=== PATIENT | male | born 1950 | race Caucasian/White ===

== ENCOUNTER 2019-08-27 21:32 | Outpatient (REF) | payer BC, SELFPAY ==
[2019-08-27 19:44] LABS: BUN 29 mg/dL (7-18); CREATININE 1.02 mg/dL (0.70-1.30); Calcium 9.4 mg/dL (8.5-10.1); Chloride 102 mmol/L (98-107); Glucose 87 mg/dL (70-100); Sodium 139 mmol/L (136-145)
== END 2019-08-27 21:52 ==
LOC: NCHCN 21:32
PROVIDERS: PCP Internal Medicine; Visit Provider Internal Medicine
DX: N20.9 Urinary calculus, unspecified (principal)
CPT/HCPCS: 80048

== ENCOUNTER 2020-05-18 18:22 | Outpatient (REF) | payer BC, SELFPAY ==
[2020-05-18 22:25] LABS: ALT 16 U/L (16-63); AST 13 U/L (15-37); Albumin 4.3 g/dL (3.4-5.0); Alkaline Phosphatase 53 U/L (46-116); Anion Gap 9.2 mmol/L (3-11); BUN 26 mg/dL (7-18); Bilirubin, Total 0.5 mg/dL (0.2-1.0); CO2 28.8 mmol/L (21.0-32.0); CREATININE 1.18 mg/dL (0.70-1.30); Calculated LDL 134 mg/dL (<100); Chloride 98 mmol/L (98-107); Cholesterol 196 mg/dL (<200); Glucose 111 mg/dL (74-106); HDL Cholesterol 40 mg/dL (40-60); Potassium 3.6 mmol/L (3.5-5.1); Sodium 136 mmol/L (136-145); Total Protein 8.4 g/dL (6.4-8.2); Triglyceride 111 mg/dL (<150)
== END 2020-05-18 18:42 ==
LOC: NCHCN 18:22
PROVIDERS: PCP Internal Medicine; Visit Provider Internal Medicine
DX: I10 Essential (primary) hypertension (principal); E78.5 Hyperlipidemia, unspecified
CPT/HCPCS: 80053; 80061

== ENCOUNTER 2020-09-23 20:01 | Outpatient (REF) | payer BC, SELFPAY ==
[2020-09-23 21:29] LABS: Abs Immature Grans 0.02 10^3/uL (0.0-0.06); Absolute Basophil Count 0.08 10^3/uL (0.0-0.2); Absolute Eosinophil Count 0.98 10^3/uL (0.0-0.7); Absolute Lymphocyte Count 1.94 10^3/uL (1.2-3.4); Absolute Neutrophil Count 4.37 10^3/uL (1.2-6.7); Eosinophils % 12.1; HCT 44.9 % (40.0-50.0); HGB 15.2 g/dL (13.5-17.5); Immature Grans % 0.2; MCH 31.4 pg (27.0-33.0); MCHC 33.9 % (32.0-36.0); MCV 92.8 fL (80-95); MPV 11.4 fL (8.0-11.0); Monocytes % 8.7; Nucleated RBC 0 %; Platelet Count 215 10^3/uL (130-400); RBC 4.84 10^6/uL (4.36-5.78); RDW 12.6 % (11.8-14.1); RDW-SD 43.2 fL; WBC 8.09 10^3/uL (4.4-10.8)
[2020-09-23 21:34] LABS: INR 1.1 (0.9-1.1); Prothrombin Time 10.9 sec (9.3-11.0)
[2020-09-23 21:51] LABS: ALT 22 U/L (16-63); AST 14 U/L (15-37); Albumin 4.2 g/dL (3.4-5.0); Alkaline Phosphatase 57 U/L (46-116); Anion Gap 5.9 mmol/L (3-11); BUN 31 mg/dL (7-18); Bilirubin, Total 0.6 mg/dL (0.2-1.0); CO2 30.1 mmol/L (21.0-32.0); Calcium 9.3 mg/dL (8.5-10.1); Chloride 101 mmol/L (98-107); Glucose 87 mg/dL (74-106); Potassium 3.8 mmol/L (3.5-5.1); Sodium 137 mmol/L (136-145); Total Protein 8.2 g/dL (6.4-8.2)
== END 2020-09-23 20:21 ==
LOC: LBN 20:01
PROVIDERS: PCP Internal Medicine; Visit Provider Surgery Vascular Surgery
DX: R79.89 Other specified abnormal findings of blood chemistry (principal); I83.812 Varicose veins of left lower extremity with pain
CPT/HCPCS: 80053; 85025; 85610; 85730

== ENCOUNTER 2021-08-31 13:55 | Outpatient (REF) | payer MEDICARE, SELFPAY ==
[2021-09-01 06:44] LABS: ALT 19 U/L (16-63); AST 12 U/L (15-37); Albumin 4.3 g/dL (3.4-5.0); Alkaline Phosphatase 59 U/L (46-116); Anion Gap 8.6 mmol/L (3-11); BUN 24 mg/dL (7-18); Bilirubin, Total 0.6 mg/dL (0.2-1.0); CO2 31.4 mmol/L (21.0-32.0); CREATININE 0.9 mg/dL (0.70-1.30); Calcium 9.7 mg/dL (8.5-10.1); Chloride 98 mmol/L (98-107); Glucose 99 mg/dL (74-106); LDL CHOLESTEROL 140 mg/dL (<100); Potassium 3.2 mmol/L (3.5-5.1); Sodium 138 mmol/L (136-145); Total Protein 8.6 g/dL (6.4-8.2)
[2021-09-01 18:45] LABS: PSA, Screening 0.8 ng/mL (0.0-4.5)
== END 2021-08-31 13:56 | disposition home or self-care (01) ==
LOC: NCHCN 13:55
PROVIDERS: PCP Internal Medicine; Visit Provider Internal Medicine
DX: I10 Essential (primary) hypertension (principal); Z86.19 Personal history of other infectious and parasitic diseases; Z12.5 Encounter for screening for malignant neoplasm of prostate
CPT/HCPCS: 80053; 83721; 84153

== ENCOUNTER 2022-08-31 18:10 | Outpatient (REF) | payer MEDICARE, SELFPAY ==
[2022-08-31 19:31] LABS: Anion Gap 5.2 mmol/L (3-11); BUN 31 mg/dL (7-18); CO2 29.8 mmol/L (21.0-32.0); CREATININE 1.3 mg/dL (0.70-1.30); Calcium 9.2 mg/dL (8.5-10.1); Calculated LDL 134 mg/dL (<100); Chloride 101 mmol/L (98-107); Cholesterol 203 mg/dL (<200); Glucose 93 mg/dL (74-106); HDL Cholesterol 52 mg/dL (40-60); Potassium 3.5 mmol/L (3.5-5.1); Sodium 136 mmol/L (136-145); Triglyceride 87 mg/dL (<150)
== END 2022-08-31 18:11 | disposition home or self-care (01) ==
LOC: NCHCN 18:10
PROVIDERS: PCP Internal Medicine; Visit Provider Internal Medicine
DX: E78.5 Hyperlipidemia, unspecified (principal); I10 Essential (primary) hypertension
CPT/HCPCS: 80048; 80061

== ENCOUNTER 2022-11-05 08:46 | Day surgery (SDC) | payer MEDICARE, SELFPAY ==
--- NOTE | 2022-11-05 06:46 | W.ANESPRE ---
General Info Date of Service Date Performed: 11/05/22 Height: 5 ft 7 in Weight: 88.451 kg Body Mass Index (BMI): 30.5 Surgical Procedure: Operation Date: 11/05/22 10:40 Proposed Procedure Side Surgeon p Cataract Extraction with IOL Implant Right Valentín Villagran MD Meds Allergies and Home Medications Allergies Allergy/AdvReac Type Severity Reaction Status Date / Time No Known Allergies Allergy Unverified 11/05/22 09:10 Home Medication Medication Instructions Recorded celecoxib 200 mg capsule (Celebrex) 200 mg PO DAILY 11/01/22 chlorthalidone 50 mg tablet 50 mg PO DIRECTED 11/01/22 clonazepam 1 mg tablet 1 tab PO DIRECTED 11/01/22 fluocinonide 0.05 % topical cream 1 applic topical BID PRN 11/01/22 hydromorphone 4 mg tablet 1 tab PO BID PRN 11/01/22 losartan 50 mg tablet 50 mg PO DAILY 11/01/22 naloxone 4 mg/actuation nasal 4 mg intranasal PRN PRN 11/01/22 spray (Narcan) potassium citrate 15 mEq (1,620 15 meq PO BID 11/01/22 mg) tablet,extended release trazodone 150 mg tablet 150 mg PO QHS 11/01/22 triamcinolone acetonide 0.1 % 1 applic topical BID PRN 11/01/22 topical cream Current Visit Medications: Current Medications Generic Name Dose Route Start Last Admin Trade Name Freq PRN Reason Stop Dose Admin Acetaminophen 1,000 mg 11/05/22 06:00 Acetaminophen 500 Mg Tab PO Q4H PRN PRN Miscellaneous Medication 0 ml 11/05/22 06:00 Prednisolone 1%, Moxifloxacin 0.5%, Nepafenac 0.1% 5ml Btl OD DIRECTED [facility] Miscellaneous Medication 0 ml 11/05/22 06:00 Tropicam./Phenyleph. (1/2.5%) 5 Ml Btl OD DIRECTED [facility] Tetracaine HCl 0 ml 11/05/22 06:00 Tetracaine 0.5% 4 Ml Btl OD DIRECTED [facility] Active Problems Active Problems: Problem Status Onset Code Cortical cataract of right eye H26.9 Nuclear sclerotic cataract of right eye H25.11 Medical History Medical History (Updated 11/02/22 @ 12:28 by Valentín Villagran MD) Anxiety and depression COPD (chronic obstructive pulmonary disease) Dermatitis Ex-smoker for more than 1 year Foot pain LEV (generalized anxiety disorder) Hematuria History of hepatitis C Hoarseness Hyperlipemia Hypertension Intention tremor Leg neuralgia Overweight Pain Pilonidal cyst Rotator cuff syndrome Sacroiliac joint pain Sciatica, right side Synovial cyst Urolithiasis Varicose veins of left lower extremity Venous insufficiency Surgical History Surgical History (Updated 11/05/22 @ 09:09 by Juanita Reynoso) History of hip replacement S/P vein stripping Status post laser lithotripsy of ureteral calculus Tobacco Smoking/Tobacco Use Status: Former Tobacco Use Alcohol Alcohol Intake: never Substance Use Substance use: Never Substance use type: does not use Vital Signs and Lab Results Vital Signs Most Recent Vital Signs in EMR: Temp Pulse Resp BP Pulse Ox 36.5 C 74 18 164/90 H 98 11/05/22 08:55 11/05/22 08:55 11/05/22 08:55 11/05/22 08:55 11/05/22 08:55 Lab Results Blood Type / Crossmatch: No Data to Display Complete Blood Count: No Data to Display Complete Metabolic Panel: No Data to Display Liver Function Panel: No Data to Display Coagulation Panel: No Data to Display Cardiac Panel: No Data to Display Arterial Blood Gas: No Data to Display Venous Blood Gas: No Data to Display Pancreas Panel: No Data to Display Thyroid Panel: No Data to Display Infectious Disease: No Data to Display Blood Cultures: No Data to Display Toxicology Panel: No Data to Display Anesthesia Assessment and Plan Anesthesia History Personal History: No History of Anesthesia Complications Family History: No Family History of Anesthesia Complications Exercise Tolerance Exercise Tolerance: Metabolic Equivalents>4 Cardiac & Pulmonary Exam Cardiac Exam: Normal S1/S2 Heart Sounds Pulmonary Exam: Clear Bilateral Breath Sounds Implantable Cardiac Device Does patient have a Pacemaker or an ICD?: No Airway Exam Known Difficult Airway: No Mallampati Class: 2 Mouth Opening: Normal (> 3cm) Thyromental Distance: Greater than 3 cm Neck Range of Motion: Full ROM Neck Circumference: Thick Teeth Condition: Removable Dentures/Plates Upper and Removable Dentures/Plates Lower ASA Classification ASA Score: ASA 2 Emergency Case?: No NPO Status NPO Status: NPO Clears >2 hours, Solids >8 hours Anesthesia Plan Resuscitation Status: Full Code Anesthesia Technique: MAC Anesthesia Airway Planned: Natural Airway Monitors Used: Standard Monitors Preoperative Comments:: 72 yo male for cataract removal. would like MKO Sig PMHx: COPD, anxiety, HTN (losartan, chlorthalidone), hep c, tremor, former smoker, never EtOH,
[2022-11-05 08:55] VITALS: BP 164/90; PULSE 74; RESP 18; TEMP 36.5; O2SAT 98
[2022-11-05] MEDS: Tropicam./Phenyleph. (1/2.5%) 5 ML BTL OD ×3 (09:10→09:22)
[2022-11-05 09:23] VITALS: BMI 30.5
[2022-11-05] MEDS: Povidone-Iodine Ophth 30 ML BTL (10:26)
[2022-11-05] MEDS: Tetracaine 0.5% 4 ML BTL OD (10:26)
[2022-11-05] MEDS: Lidocaine 2% Jelly 6 ML SYR (10:26)
[2022-11-05] MEDS: Balanced Salt Soln.-PLUS 500 ML BAG (10:33)
[2022-11-05] MEDS: Duovisc Viscoelastic System EACH 1 EACH (10:33)
[2022-11-05] MEDS: Trypan Blue 0.06% 0.5 ML SYR (10:33)
[2022-11-05] MEDS: Lidocaine 1% Pres-Free 5 ML VIAL (10:34)
[2022-11-05 10:53] VITALS: BP 134/78; PULSE 71; RESP 16; TEMP 36.5; O2SAT 96
--- NOTE | 2022-11-05 10:53 | W.PM.DSUDISC ---
Date of service: 11/05/22 Time of Service: 10:54 Discharge Plan Disposition Patient Disposition: Home Discharge Details Attending Provider: Valentín Villagran Primary Care Provider: Jarad Pena Meds and New Rx's Prescriptions: No Action losartan 50 mg Tablet 50 mg PO DAILY celecoxib [Celebrex] 200 mg Capsule 200 mg PO DAILY clonazepam 1 mg tablet 1 tab PO DIRECTED chlorthalidone 50 mg Tablet 50 mg PO DIRECTED triamcinolone acetonide 0.1 % Cream 1 applic TOPICAL BID PRN trazodone 150 mg Tablet 150 mg PO QHS hydromorphone 4 mg tablet 1 tab PO BID PRN Label Comments: Take 1 tablet by mouth twice a day as needed for pain: must last 28 days: no early refills potassium citrate 15 mEq Tablet Extended Release 15 meq PO BID naloxone [Narcan] 4 mg/actuation [place],Non-Aerosol 4 mg INTRANASAL PRN PRN Rx Instructions: spray 1 dose into ONE nostril; alternate nostrils w each dose until help arrives fluocinonide 0.05 % Cream 1 applic TOPICAL BID PRN Discharge Instructions Stand Alone Forms: Post-op Topical Cataract, Arina Aggarwal (DSU) Discharge Orders Discharge Orders: Discharge Order (Routine); Ordered 11/05/22 Ordered By: Valentín Villagran DS: Diagnosis Discharge Diagnosis (1) Nuclear sclerotic cataract of right eye: Status: Resolved (2) Cortical cataract of right eye: Status: Resolved
--- NOTE | 2022-11-05 10:54 | W.PM.OP ---
Date of service: 11/05/22 Time of Service: 10:54 Operative Note Operative Note DATE OF PROCEDURE: 11/05/22 PRE-OP DIAGNOSIS: Nuclear/cortical cataract, right eye POST-OP DIAGNOSIS: same PROCEDURE: Cataract extraction using phacoemulsification with intraocular lens implantation, right eye, using capsular staining with Vision Blue SURGEON: Valentín Villagran ANESTHESIA TYPE: Local By Surgeon and MAC Refer to Anesthesia Record PATHOLOGY: none sent COMPLICATIONS: None Patient was transported to: same day Patient's condition: stable Implants: Jose [employer] / [employer] Tecnis [id number] Indications: Progressive visual loss due to cataract, right eye Procedure Description: CATARACT SURGERY OPERATIVE REPORT PREOPERATIVE DIAGNOSIS: 1. Nuclear/cortical cataract, right eye 2. Poor red reflex secondary to #1 POSTOPERATIVE DIAGNOSIS: Same OPERATION: 1. Cataract extraction using phacoemulsification with posterior chamber intraocular lens implant, right eye. 2. Capsular staining with Vision Blue IOL: IOL Flat Surfacer Jewel/Model: Jose & Jose / SERAFIN Tecnis [id number] IOL Power: + 21.0 diopters IOL Serial Number: [id number] Optic Diameter: 6.0mm Haptic/Overall Diameter: 13.0mm PHACO INFO: Ronny [employer] Vision System with OZil and Active [employer]uid[employer] Cumulative Dispersed Energy (CDE): 5.15 seconds SURGEON: Valentín Villagran MD, MARY BETH ANESTHESIA: Monitored Anesthesia Care (MAC), with local sub-tenon's anesthetic infiltration COMPLICATIONS: None SPECIMENS: None INDICATIONS FOR PROCEDURE: The patient is a 72-year-old gentleman with history of diminished visual acuity in his right eye secondary to the development of significant nuclear/cortical cataract. He is significantly symptomatic that he desires cataract surgery and attempt to improve and maximize his vision. The option of cataract surgery was offered to the patient and he wished to proceed. PROCEDURE: The correct surgical eye was identified and marked as the right eye and the pupil was dilated in the preoperative area using mydriatics and cycloplegics. The dilated pupil size was 7.0 mm. Oral sedation was administered in the form of an Imprimis MKO Melt (midazolam 3mg/ketamine 25mg/ondansetron 2mg). . The patient was brought to the operating room where cardiopulmonary monitoring was instituted and surgical time-out was performed, confirming the correct operative eye and IOL power. Topical anesthesia was administered and ophthalmic povidone-iodine 5% was instilled into the conjunctival fornices. Lidocaine gel was applied to the cornea and the sea-ocular area was prepped with Betadine 10% solution and draped in the usual sterile fashion for intraocular surgery, including an aperture drape. A Tegaderm transparent film dressing was cut in half and used to cover the lashes and lid margins. Care was taken to sequester the lashes and lid margins under the Tegaderm dressing. A lid speculum was placed between the lids of the operative eye and the Ronny [employer] operating microscope was maneuvered into position. Spenser scissors were then used to make a conjunctival buttonhole approximately 6mm posterior to the limbus in the inferonasal quadrant. Blunt dissection was carried out to expose bare sclera, and a blunt-tipped sub-tenon?s anesthesia cannula was introduced and passed posteriorly along the globe where non-preserved plain lidocaine was injected into posterior sub-Tenon?s space. A sideport knife was used to make a paracentesis port inferotemporally. Intraocular phenylephrine/lidocaine was injected into the anterior chamber. Air was injected into the anterior chamber, followed by Vision Blue, which was painted over the anterior capsule and then irrigated out with BSS. The anterior chamber was filled with viscoelastic. A keratome knife was used to create a 2-plane near clear corneal tunnel extending approximately 2 mm into clear cornea superior temporally.. A flap was raised on the anterior capsule and capsulorhexis forceps were used to complete a continuous curvilinear capsulorhexis of 5.0 mm. Balanced salt solution was then used to perform cortical cleaving hydrodissection and nuclear hydrodelineation until the lens could be freely rotated within the capsular bag. The lens nucleus was then disassembled and removed within the capsular bag and iris plane using phacoemulsification. Residual cortical material was removed using the I/A handpiece. The posterior capsule was carefully polished to remove as much residual lens epithelial cells as safely possible. The capsular bag was then inflated and the anterior chamber deepened with viscoelastic. The lens implant described above was inserted into the capsular bag using the SERAFIN [place] Injector. A Kuglen hook was used to dial the IOL into position. Residual viscoelastic was then removed first from posterior to the IOL, then from the anterior chamber using the I/A handpiece. The lens implant was noted to center nicely within the capsular bag. The incisions were stromally hydrated, and the anterior chamber was reformed using BSS. Then 0.5cc of moxifloxacin 1.0mg/ml were injected into the capsular bag and anterior chamber. The incisions were checked with a Weck spear and found to be secure. Several drops of ophthalmic povidone-iodine 5% were then applied to the eye followed by two drops of Imprimis combination prednisolone/moxifloxacin/nepafenac solution. The drapes were removed and a clear plastic protective eye shield was placed over the eye. The patient was then returned to Same Day Surgery in stable condition.
--- NOTE | 2022-11-05 11:02 | W.ANESPOSTOP ---
Postoperative Evaluation Date, Time and Location Date Performed: 11/05/22 Time Performed: 11:02 Patient Location: Day Surgery Unit Vital Signs Most Recent Imported Vital Signs: Most Recent Vital Signs Temp Pulse Resp BP Pulse Ox 36.5 C 71 16 134/78 96 11/05/22 10:53 11/05/22 10:53 11/05/22 10:53 11/05/22 10:53 11/05/22 10:53 Pain Score Most Recent Pain Score: Most Recent Pain Score Pain Level 0 11/05/22 10:53 Assessment Mental Status: Awake (Alert & Oriented to Patient Baseline) Airway and Respiratory Function: Patent airway with normal (patient baseline) respiratory exam Cardiovascular Function: Hemodynamically Stable Hydration Status: Adequately Hydrated Nausea & Vomiting: No Nausea or Vomiting Pain: Pt. Denies Any Pain Peripheral Nerve Block: Patient did not receive a nerve block
[2022-11-05 11:17] VITALS: BP 141/81; PULSE 72; RESP 16; TEMP 36.1; O2SAT 96
== END 2022-11-05 11:22 | disposition home or self-care (01) ==
LOC: SUR 08:46
PROVIDERS: PCP Internal Medicine; Visit Provider Ophthalmology
PROC: (CPT 66982; principal; 2022-11-05 10:30)
DX: H25.11 Age-related nuclear cataract, right eye (principal); H26.8 Other specified cataract
CPT/HCPCS: 66982; V2632

== ENCOUNTER 2022-11-19 10:30 | Day surgery (SDC) | payer MEDICARE, SELFPAY ==
[2022-11-19 10:33] VITALS: BP 147/87; PULSE 73; RESP 16; TEMP 36.4; O2SAT 98
[2022-11-19] MEDS: Tropicam./Phenyleph. (1/2.5%) 5 ML BTL OS ×3 (10:43→10:53)
--- NOTE | 2022-11-19 11:57 | ANES.PREOP_ITS ---
General Info Date of Service Date Performed: 11/19/22 Height: 5 ft 7 in Weight: 92.1 kg Body Mass Index (BMI): 31.8 Surgical Procedure: Operation Date: 11/19/22 12:25 Proposed Procedure Side Surgeon p Cataract Extraction with IOL Implant Left Valentín Villagran MD Actual Procedure Side Surgeon p Cataract Extraction with IOL Implant Left Valentín Villagran MD Pre-Op Diagnosis Post-Op Diagnosis CATARACT LEFT EYE CATARACT LEFT EYE Meds Allergies and Home Medications Allergies Allergy/AdvReac Type Severity Reaction Status Date / Time No Known Allergies Allergy Unverified 11/19/22 10:34 Home Medication Medication Instructions Recorded celecoxib 200 mg capsule (Celebrex) 200 mg PO DAILY 11/01/22 chlorthalidone 50 mg tablet 50 mg PO DIRECTED 11/01/22 clonazepam 1 mg tablet 1 tab PO DIRECTED 11/01/22 fluocinonide 0.05 % topical cream 1 applic topical BID PRN 11/01/22 hydromorphone 4 mg tablet 1 tab PO BID PRN 11/01/22 losartan 50 mg tablet 50 mg PO DAILY 11/01/22 naloxone 4 mg/actuation nasal 4 mg intranasal PRN PRN 11/01/22 spray (Narcan) potassium citrate 15 mEq (1,620 15 meq PO BID 11/01/22 mg) tablet,extended release trazodone 150 mg tablet 150 mg PO QHS 11/01/22 triamcinolone acetonide 0.1 % 1 applic topical BID PRN 11/01/22 topical cream Current Visit Medications: Current Medications Generic Name Dose Route Start Last Admin Trade Name Freq PRN Reason Stop Dose Admin Acetaminophen 1,000 mg 11/19/22 06:00 Acetaminophen 500 Mg Tab PO Q4H PRN PRN Miscellaneous Medication 0 ml 11/19/22 06:00 Prednisolone 1%, Moxifloxacin 0.5%, Nepafenac 0.1% 5ml Btl OS DIRECTED [facility] Miscellaneous Medication 0 ml 11/19/22 06:00 11/19/22 10:53 Tropicam./Phenyleph. (1/2.5%) 5 Ml Btl OS 1 drp DIRECTED [facility] Administration Tetracaine HCl 0 ml 11/19/22 06:00 Tetracaine 0.5% 4 Ml Btl OS DIRECTED [facility] PFSH Active Problems Active Problems: Problem Status Onset Code Nuclear sclerotic cataract of right eye H25.11 Cortical cataract of right eye H26.9 Nuclear sclerotic cataract of left eye H25.12 Cortical cataract of left eye H26.9 Medical History Medical History Anxiety and depression COPD (chronic obstructive pulmonary disease) Dermatitis Ex-smoker for more than 1 year Foot pain LEV (generalized anxiety disorder) Hematuria History of hepatitis C Hoarseness Hyperlipemia Hypertension Intention tremor Leg neuralgia Overweight Pain Pilonidal cyst Rotator cuff syndrome Sacroiliac joint pain Sciatica, right side Synovial cyst Urolithiasis Varicose veins of left lower extremity Venous insufficiency Surgical History Surgical History (Updated 11/19/22 @ 10:34 by Juanita Reynoso) History of cataract surgery History of hip replacement S/P vein stripping Status post laser lithotripsy of ureteral calculus Tobacco Smoking/Tobacco Use Status: Former Tobacco Use Alcohol Alcohol Intake: never Substance Use Substance use: Never Substance use type: does not use Vital Signs and Lab Results Vital Signs Most Recent Vital Signs in EMR: Most Recent Vital Signs Temp Pulse Resp BP Pulse Ox 36.4 C L 73 16 147/87 H 98 11/19/22 10:33 11/19/22 10:33 11/19/22 10:33 11/19/22 10:33 11/19/22 10:33 Lab Results Blood Type / Crossmatch: No Data to Display Complete Blood Count: No Data to Display Complete Metabolic Panel: No Data to Display Liver Function Panel: No Data to Display Coagulation Panel: No Data to Display Cardiac Panel: No Data to Display Arterial Blood Gas: No Data to Display Venous Blood Gas: No Data to Display Pancreas Panel: No Data to Display Thyroid Panel: No Data to Display Infectious Disease: No Data to Display Blood Cultures: No Data to Display Toxicology Panel: No Data to Display Anesthesia Assessment and Plan Anesthesia History Personal History: No History of Anesthesia Complications Family History: No Family History of Anesthesia Complications Exercise Tolerance Exercise Tolerance: Metabolic Equivalents>4 Pertinent Negatives Pertinent Negatives: No Symptoms of GERD Cardiac & Pulmonary Exam Cardiac Exam: Normal S1/S2 Heart Sounds Pulmonary Exam: Clear Bilateral Breath Sounds Implantable Cardiac Device Does patient have a Pacemaker or an ICD?: No Airway Exam Known Difficult Airway: No Mallampati Class: 2 Mouth Opening: Normal (> 3cm) Thyromental Distance: Greater than 3 cm Neck Range of Motion: Full ROM Neck Circumference: Thick Teeth Condition: Removable Dentures/Plates Upper and Removable Dentures/Plates Lower ASA Classification ASA Score: ASA 2 Emergency Case?: No NPO Status NPO Status: NPO Clears >2 hours, Solids >8 hours Anesthesia Plan Resuscitation Status: Full Code Anesthesia Technique: MAC Anesthesia Airway Planned: Natural Airway Monitors Used: Standard Monitors Preoperative Comments:: 72 yo male for cataract removal. would like MKO Sig PMHx: COPD, anxiety, HTN (losartan, chlorthalidone), hep c, tremor, former smoker, never EtOH 11/19/2022: Patient requesting 2 MKOs, discussed that patient might have to stay longer postoperatively depending on mental status. Patient decided to only take 1 MKO, I will make sure the patient had adequate time for absorption prior to heading back for surgery.
[2022-11-19 12:00] VITALS: BMI 31.8
[2022-11-19] MEDS: Trypan Blue 0.06% 0.5 ML SYR (12:04)
[2022-11-19] MEDS: Tetracaine 0.5% 4 ML BTL OS (12:06)
[2022-11-19] MEDS: Balanced Salt Soln.-PLUS 500 ML BAG (12:06)
[2022-11-19] MEDS: Duovisc Viscoelastic System EACH 1 EACH (12:09)
[2022-11-19] MEDS: Lidocaine 1% Pres-Free 5 ML VIAL (12:10)
[2022-11-19] MEDS: Lidocaine 2% Jelly 6 ML SYR (12:10)
[2022-11-19] MEDS: Povidone-Iodine Ophth 30 ML BTL (12:12)
[2022-11-19 12:20] VITALS: BP 119/82; PULSE 70; RESP 16; TEMP 36.7; O2SAT 98
--- NOTE | 2022-11-19 12:21 | PDOC.DSDIS_ITS ---
Date of service: 11/19/22 Time of Service: 12:21 Discharge Plan Disposition Patient Disposition: Home Discharge Details Attending Provider: Valentín Villagran Primary Care Provider: Jarad Pena Meds and New Rx's Prescriptions: No Action losartan 50 mg Tablet 50 mg PO DAILY celecoxib [Celebrex] 200 mg Capsule 200 mg PO DAILY clonazepam 1 mg tablet 1 tab PO DIRECTED chlorthalidone 50 mg Tablet 50 mg PO DIRECTED triamcinolone acetonide 0.1 % Cream 1 applic TOPICAL BID PRN trazodone 150 mg Tablet 150 mg PO QHS hydromorphone 4 mg tablet 1 tab PO BID PRN Label Comments: Take 1 tablet by mouth twice a day as needed for pain: must last 28 days: no early refills potassium citrate 15 mEq Tablet Extended Release 15 meq PO BID naloxone [Narcan] 4 mg/actuation [place],Non-Aerosol 4 mg INTRANASAL PRN PRN Rx Instructions: spray 1 dose into ONE nostril; alternate nostrils w each dose until help arrives fluocinonide 0.05 % Cream 1 applic TOPICAL BID PRN Discharge Instructions Stand Alone Forms: Post-op Topical Cataract, Arina Aggarwal (DSU) Discharge Orders Discharge Orders: Discharge Order (Routine); Ordered 11/19/22 Ordered By: Valentín Villagran DS: Diagnosis Discharge Diagnosis (1) Nuclear sclerotic cataract of left eye: Status: Resolved (2) Cortical cataract of left eye: Status: Resolved
--- NOTE | 2022-11-19 12:22 | ROE_ITS ---
Date of service: 11/19/22 Time of Service: 12:22 Operative Note Operative Note DATE OF PROCEDURE: 11/19/22 PRE-OP DIAGNOSIS: Nuclear/cortical cataract, left eye POST-OP DIAGNOSIS: same PROCEDURE: Cataract extraction using phacoemulsification with intraocular lens implant, left eye SURGEON: Valentín Villagran ANESTHESIA TYPE: Local By Surgeon and MAC Refer to Anesthesia Record PATHOLOGY: none sent COMPLICATIONS: None Patient was transported to: same day Patient's condition: stable Implants: Jose and Jose Tecnis Eyhance [id number] Indications: Progressive decreased vision due to cataract, left eye Procedure Description: CATARACT SURGERY OPERATIVE REPORT PREOPERATIVE DIAGNOSIS: 1. Nuclear/cortical cataract, left eye POSTOPERATIVE DIAGNOSIS: Same OPERATION: 1. Cataract extraction using phacoemulsification with posterior chamber intraocular lens implant, left eye. IOL: IOL Stud Setter/Model: Jose [employer] Jose Tecnis Eyhance DIB00 IOL Power: + 21.5 diopters IOL Serial Number: [id number] Optic Diameter: 6.0 mm Haptic/Overall Diameter: 13.0 mm PHACO INFO: [facility] with OZil and Active Fluidics Cumulative Dispersed Energy (CDE): 4.76 seconds SURGEON: Valentín Villagran MD, MARY BETH ANESTHESIA: Monitored [facility] (MAC), with local sub-tenon's anesthetic infiltration COMPLICATIONS: None SPECIMENS: None INDICATIONS FOR PROCEDURE: Patient is a 72-year-old gentleman with history of diminished visual acuity in both eyes secondary to the development of bilateral nuclear/cortical cataract. He has PROCEDURE: The correct surgical eye was identified and marked as the left eye and the pupil was dilated in the preoperative area using mydriatics and cycloplegics. The dilated pupil size was 7.0 mm. Oral sedation was administered in the form of an Imprimis MKO Melt (midazolam 3mg/ketamine 25mg/ondansetron 2mg). The patient was brought to the operating room where cardiopulmonary monitoring was instituted and surgical time-out was performed, confirming the co rrect operative eye and IOL power. Topical anesthesia was administered and ophthalmic povidone-iodine 5% was instilled into the conjunctival fornices. Lidocaine gel was applied to the cornea and the sea-ocular area was prepped with Betadine 10% solution and draped in the usual sterile fashion for intraocular surgery, including an aperture drape. A Tegaderm transparent film dressing was cut in half and used to cover the lashes and lid margins. Care was taken to sequester the lashes and lid margins under the Tegaderm dressing. A lid speculum was placed between the lids of the operative eye and the Ronny [employer] Revalia operating microscope was maneuvered into position. Spenser scissors were then used to make a conjunctival buttonhole approximately 6mm posterior to the limbus in the inferonasal quadrant. Blunt dissection was carried out to expose bare sclera, and a blunt-tipped sub-tenon?s anesthesia cannula was introduced and passed posteriorly along the globe where non-preserved plain lidocaine was injected into posterior sub-Tenon?s space. A sideport knife was used to make a paracentesis port superiorly/superiortemporally. Intraocular phenylephrine/lidocaine was injected int the anterior chamber.. The anterior chamber was filled with viscoelastic. A keratome knife was used to construct a 2-plane near-clear corneal tunnel extending 2.0mm into clear cornea temporally. A flap was raised on the anterior capsule and capsulorhexis forceps were used to complete a continuous curvilinear capsulorhexis of 5.0 mm. Balanced salt solution was then used to perform cortical cleaving hydrodissection and nuclear hydrodelineation until the lens could be freely rotated within the capsular bag. The lens nucleus was then disassembled and removed within the capsular bag and iris plane using phacoemulsification. Residual cortical material was removed using the 45-degree angled silicone I/A tip with 0.3mm port. The posterior capsule was carefully polished to remove as much residual lens epithelial cells as safely possible. The capsular bag was then inflated and the anterior chamber deepened with viscoelastic. The lens implant described above was inserted into the capsular bag using the Jose and Jose Simplicity pre-loaded injector. . A Kuglen hook was used to dial the IOL into position. Residual viscoelastic was then removed first from posterior to the IOL, then from the anterior chamber using the I/A handpiece. The lens implant was noted to center nicely within the capsular bag. The incisions were stromally hydrated, and the anterior chamber was reformed using BSS. Then 0.5cc of moxifloxacin 1.0mg/ml were injected into the capsular bag and anterior chamber. The incisions were checked with a Weck spear and found to be secure. Several drops of ophthalmic povidone-iodine 5% were then applied to the eye followed by two drops of Imprimis combination prednisolone/moxifloxacin/nepafenac solution. The drapes were removed and a clear plastic protective eye shield was placed over the eye. The patient was then returned to Same Day Surgery in stable condition.
[2022-11-19 12:48] VITALS: BP 121/55; PULSE 68; RESP 18; TEMP 36.2; O2SAT 97
--- NOTE | 2022-11-19 12:49 | W.ANESPOSTOP ---
Postoperative Evaluation Date, Time and Location Date Performed: 11/19/22 Time Performed: 12:49 Patient Location: Day Surgery Unit Vital Signs Most Recent Imported Vital Signs: Most Recent Vital Signs Temp Pulse Resp BP Pulse Ox 36.7 C 70 16 119/82 98 11/19/22 12:20 11/19/22 12:20 11/19/22 12:20 11/19/22 12:20 11/19/22 12:20 Pain Score Most Recent Pain Score: Most Recent Pain Score Pain Level 0 11/19/22 12:20 Assessment Mental Status: Awake (Alert & Oriented to Patient Baseline) Airway and Respiratory Function: Patent airway with normal (patient baseline) respiratory exam Cardiovascular Function: Hemodynamically Stable Hydration Status: Adequately Hydrated Nausea & Vomiting: No Nausea or Vomiting Pain: Pt. Denies Any Pain Peripheral Nerve Block: Other (Local by Dr. Villagran)
== END 2022-11-19 12:57 | disposition home or self-care (01) ==
LOC: SUR 10:30
PROVIDERS: PCP Internal Medicine; Visit Provider Ophthalmology
PROC: (CPT 66984; principal; 2022-11-19 12:15)
DX: H25.12 Age-related nuclear cataract, left eye (principal)
CPT/HCPCS: 66984; V2632

== ENCOUNTER 2023-10-28 15:50 | Outpatient (REF) | payer MEDICARE, SELFPAY ==
[2023-10-28 19:47] LABS: ALT 25 U/L (16-63); Anion Gap 7.3 mmol/L (3-11); BUN 32 mg/dL (7-18); CO2 28.7 mmol/L (21.0-32.0); CREATININE 1.2 mg/dL (0.70-1.30); Calcium 9.7 mg/dL (8.5-10.1); Calculated LDL 144 mg/dL (<100); Chloride 103 mmol/L (98-107); Cholesterol 209 mg/dL (<200); Estimated GFR 64.65 (mL/min/1.73m2); Glucose 141 mg/dL (74-106); HDL Cholesterol 49 mg/dL (40-60); Potassium 3.6 mmol/L (3.5-5.1); Sodium 139 mmol/L (136-145); Triglyceride 84 mg/dL (<150)
[2023-10-28 20:19] LABS: Creatine Kinase 115 U/L (39-308)
== END 2023-10-28 15:51 | disposition home or self-care (01) ==
LOC: NCHCN 15:50
PROVIDERS: PCP Internal Medicine; Visit Provider Internal Medicine
DX: I10 Essential (primary) hypertension (principal); E78.5 Hyperlipidemia, unspecified
CPT/HCPCS: 80048; 80061; 82550; 84460

== ENCOUNTER → 2025-01-25 14:03 | Outpatient (BNVA) | payer MEDICARE, SELFPAY | PROVIDERS: PCP Internal Medicine; Referring Provider Internal Medicine; Visit Provider Student in an Organized Health Care Education/Training Program | DX: M76.892 Other specified enthesopathies of left lower limb, excluding foot (principal); M25.552 Pain in left hip; G89.29 Other chronic pain; Z96.642 Presence of left artificial hip joint | CPT/HCPCS: 99204 ==

== ENCOUNTER 2025-02-08 16:27 | Outpatient (REF) | payer MEDICARE, SELFPAY ==
[2025-02-08 19:37] LABS: ALT 21 U/L (16-63); AST 13 U/L (15-37); Albumin 4.2 g/dL (3.4-5.0); Alkaline Phosphatase 45 U/L (46-116); Anion Gap 4.1 mmol/L (3-11); BUN 27 mg/dL (7-18); Bilirubin, Total 0.3 mg/dL (0.2-1.0); CO2 33.9 mmol/L (21.0-32.0); CREATININE 1.3 mg/dL (0.70-1.30); Calcium 10.1 mg/dL (8.5-10.1); Calculated LDL 117 mg/dL (<100); Chloride 103 mmol/L (98-107); Cholesterol 205 mg/dL (<200); Estimated GFR 58.37 (mL/min/1.73m2); Glucose 130 mg/dL (74-106); HDL Cholesterol 47 mg/dL (>or=40); Potassium 4.2 mmol/L (3.5-5.1); Sodium 141 mmol/L (136-145); Total Protein 8.7 g/dL (6.4-8.2); Triglyceride 209 mg/dL (<150)
== END 2025-02-08 16:28 | disposition home or self-care (01) ==
LOC: NCHCN 16:27
PROVIDERS: PCP Internal Medicine; Visit Provider Internal Medicine
DX: I10 Essential (primary) hypertension (principal)
CPT/HCPCS: 80053; 80061